=== PATIENT | male | born 1950 | race Caucasian/White ===

== ENCOUNTER 2023-06-15 08:53 | Outpatient (CLI) | payer MEDICARE, OTHER ==
[~2023-06-15 08:53] MED LIST: Iopamidol 370 76% 100 ML VIAL ONE
== END 2023-06-15 08:54 | disposition home or self-care (01) ==
LOC: CSHCT 08:53
PROVIDERS: ATTEND Internal Medicine Cardiovascular Disease
DX: I77.810 Thoracic aortic ectasia (principal); I51.7 Cardiomegaly; K80.20 Calculus of gallbladder without cholecystitis without obstruction
CPT/HCPCS: 71275; 82565

== ENCOUNTER 2023-11-11 09:52 | Outpatient (CLI) | payer MEDICARE, OTHER | END 2023-11-11 09:53 | disposition home or self-care (01) | LOC: CSHCT 09:52 | PROVIDERS: ATTEND Internal Medicine Cardiovascular Disease | DX: I35.0 Nonrheumatic aortic (valve) stenosis (principal); I77.810 Thoracic aortic ectasia; I70.0 Atherosclerosis of aorta | CPT/HCPCS: 71275; 82565 ==

== ENCOUNTER 2024-05-31 10:03 | Outpatient (CLI) | payer MEDICARE, OTHER ==
[2024-05-31] MEDS ORDERED: Iopamidol 370 76% 100 ML VIAL ONE (12:59)
== END 2024-05-31 10:04 | disposition home or self-care (01) ==
LOC: CSHCT 10:03
PROVIDERS: ATTEND Internal Medicine Cardiovascular Disease
DX: I77.810 Thoracic aortic ectasia (principal); I35.8 Other nonrheumatic aortic valve disorders; K80.20 Calculus of gallbladder without cholecystitis without obstruction
CPT/HCPCS: 36415; 71275; 82565; Q9967